=== PATIENT | female | born 1985 | race Caucasian/White ===

== ENCOUNTER 2020-06-20 12:45 | Emergency (ER) | payer BC ==
[~2020-06-20] VITALS: Ht 172.7 cm; Wt 63.5 kg
[2020-06-20] MEDS ORDERED: DICLOFENAC POTA50 MG PO (16:06)
== END 2020-06-20 16:30 | disposition home or self-care (01) ==
LOC: ER 12:45
DX: S62.646A Nondisplaced fracture of proximal phalanx of right little finger, initial encounter for closed fracture (principal); X50.0XXA Overexertion from strenuous movement or load, initial encounter; Y93.18 Activity, surfing, windsurfing and boogie boarding; Y92.832 Beach as the place of occurrence of the external cause; Y99.8 Other external cause status

== ENCOUNTER 2020-06-29 08:29 | Outpatient (CLI) | payer BC ==
[~2020-06-29 08:29] MED LIST: DICLOFENAC POTA50 MG PO
== END 2020-06-29 09:14 | disposition home or self-care (01) ==
LOC: RAD 08:29
PROVIDERS: ATTEND Orthopaedic Surgery
DX: M79.641 Pain in right hand (principal)